=== PATIENT | male | born 1955 | race Caucasian/White ===

== ENCOUNTER 2018-11-21 08:55 | Emergency (ER) | payer OTHER ==
[~2018-11-21] VITALS: Ht 180.3 cm; Wt 91.2 kg
[~2018-11-21 08:55] MED LIST: ACTOS; COLACE100 MG PO; FLEXERIL PO; GLIMEPIRIDE2 MG PO; GLUCOPHAGE; HYDROCODONE-AP1 EAC6 PO; HYTRIN 2MG CAPSU2 M1 PO; LISINOPRIL20 MG PO; METFORMIN HCL500 MG PO; NORCO 5-325 TA1 EACH PO; PERCOCET 10-321 EACH PO; PREDNISONE 10 M10 MG PO; ROBAXIN 750 MG750 M1 PO; SIMVASTATIN; SIMVASTATIN40 MG PO; UNKNOWN BP MED; [UNRECOGNIZED DRUG - REMARK]
[2018-11-21] MEDS ORDERED: JANUMET 50-1,01 EACH PO (09:18)
[2018-11-21] MEDS ORDERED: TYLENOL WITH CO1 TA1 PO (11:18)
[2018-11-21 11:44] VITALS: BP 124/79
== END 2018-11-21 11:45 | disposition home or self-care (01) ==
LOC: M.ERS 08:55
DX: S70.11XA Contusion of right thigh, initial encounter (principal); M25.561 Pain in right knee; I10 Essential (primary) hypertension; E11.9 Type 2 diabetes mellitus without complications; K21.9 Gastro-esophageal reflux disease without esophagitis; Z98.890 Other specified postprocedural states; Z88.5 Allergy status to narcotic agent; W22.8XXA Striking against or struck by other objects, initial encounter; Y93.89 Activity, other specified; Y92.89 Other specified places as the place of occurrence of the external cause; Y99.0 Civilian activity done for income or pay

== ENCOUNTER 2019-02-25 06:50 | Emergency (ER) | payer OTHER ==
[~2019-02-25] VITALS: Ht 180.3 cm; Wt 93.4 kg
[~2019-02-25 06:50] MED LIST changes: +JANUMET 50-1,01 EACH PO; +TYLENOL WITH CO1 TA1 PO
[2019-02-25 07:38] LABS: INFLUENZA A ANTIGEN Negative (Negative); INFLUENZA B ANTIGEN Negative (Negative)
[2019-02-25] MEDS ORDERED: ZPAK PO (07:41)
[2019-02-25] MEDS ORDERED: VENTOLIN HFA 1818 GM INH (07:41)
[2019-02-25 08:16] VITALS: BP 120/69
== END 2019-02-25 08:16 | disposition home or self-care (01) ==
LOC: M.ERS 06:50
PROVIDERS: Emergency Medicine Emergency Medical Services
DX: J18.9 Pneumonia, unspecified organism (principal); I10 Essential (primary) hypertension; E11.9 Type 2 diabetes mellitus without complications; K21.9 Gastro-esophageal reflux disease without esophagitis; Z88.5 Allergy status to narcotic agent